=== PATIENT | female | born 1960 | race Caucasian/White ===

== ENCOUNTER 2017-09-14 18:45 | Emergency (ER) | payer OTHER ==
[2017-09-14 19:32] VITALS: BP 147/93
[2017-09-14] MEDS ORDERED: Lidocaine 1% MPF* 2 ML VIAL INJ ONE (20:24)
--- NOTE | 2017-09-14 20:26 | UC ---
Laceration HPI - HPI Summary HPI Summary: tripped and cut right foot on a rock at 1820. - History Of Current Complaint Hx Obtained From: Patient Laceration Location: Foot - right Mechanism Of Injury: Blunt Trauma Onset/Duration: Sudden Onset Pain Intensity: 4 Pain Scale Used: 0-10 Numeric Aggravating Factors: Nothing <Sarah Vaughan - Last Filed: 09/25/17 22:12> <Renetta Kay - Last Filed: 09/27/17 07:24> - History Of Current Complaint Chief Complaint: UCLaceration Stated Complaint: FOOT LAC Time Seen by Provider: 09/14/17 20:04 - Allergies/Home Medications Allergies/Adverse Reactions: Allergies Allergy/AdvReac Type Severity Reaction Status Date / Time erythromycin base Allergy N/V Verified 09/14/17 19:32 LIDEX Allergy Unknown Uncoded 09/14/17 19:32 Reaction Details PMH/Surg Hx/FS Hx/Imm Hx Previously Healthy: Yes - Surgical History Surgical History: None - Family History Known Family History: Positive: None Family History: NON CONTRIBUTORY - Social History Occupation: Employed Full-time Lives: With Family Alcohol Use: Occasionally Substance Use Type: None Smoking Status (MU): Never Smoked Tobacco <Sarah Vaughan - Last Filed: 09/25/17 22:12> Review of Systems Constitutional: Negative Skin: Other - laceration to right foot--less than 2.5 cm Eyes: Negative ENT: Negative Respiratory: Negative Cardiovascular: Negative Gastrointestinal: Negative Genitourinary: Negative Motor: Negative Neurovascular: Negative Musculoskeletal: Negative Neurological: Negative Psychological: Negative Is Patient Immunocompromised?: No All Other Systems Reviewed And Are Negative: Yes <Sarah Vaughan - Last Filed: 09/25/17 22:12> Physical Exam Triage Information Reviewed: Yes Appearance: Well-Appearing, No Pain Distress, Well-Nourished Vital Signs: Initial Vital Signs Temp 98 F 09/14/17 19:28 Pulse 91 09/14/17 19:28 Resp 16 09/14/17 19:28 BP 147/93 09/14/17 19:28 Pulse Ox 97 09/14/17 19:28 Vital Signs Reviewed: Yes Eye Exam: Normal Eyes: Positive: Conjunctiva Clear ENT Exam: Normal ENT: Positive: Normal ENT inspection, Hearing grossly normal. Negative: Trismus , Muffled voice, Hoarse voice Dental Exam: Normal Neck exam: Normal Neck: Positive: Supple, Nontender Respiratory Exam: Normal Respiratory: Positive: Chest non-tender, No respiratory distress, No accessory muscle use Cardiovascular Exam: Normal Cardiovascular: Positive: RRR, Pulses Normal, Brisk Capillary Refill Musculoskeletal Exam: Normal Musculoskeletal: Positive: Strength Intact, ROM Intact, No Edema Neurological Exam: Normal Neurological: Positive: Alert, Muscle Tone Normal Psychological Exam: Normal Skin Exam: Normal Skin: Positive: Other - less than 2.5 cm laceration right foot <Sarah Vaughan - Last Filed: 09/25/17 22:12> Vital Signs: Initial Vital Signs Temp 98 F 09/14/17 19:28 Pulse 91 09/14/17 19:28 Resp 16 09/14/17 19:28 BP 147/93 09/14/17 19:28 Pulse Ox 97 09/14/17 19:28 <Renetta Kay - Last Filed: 09/27/17 07:24> Laceration Course/Dx - Course/Dx Course Of Treatment: DSD, wash daily keflex follow with pcp rpn - Differential Dx - Laceration/Wound Provider Diagnoses: less than 2.5 cm laceration to right foot <Sarah Vaughan - Last Filed: 09/25/17 22:12> Discharge - Sign-Out/Discharge Documenting (check all that apply): Discharge/Admit/Transfer - Billing Disposition and Condition Condition: STABLE Disposition: Home <aSrah Vaughan - Last Filed: 09/25/17 22:12> - Billing Disposition and Condition Condition: STABLE Disposition: Home <Renetta Kay - Last Filed: 09/27/17 07:24> - Discharge Plan Condition: Stable Disposition: HOME Prescriptions: Cephalexin CAP* [Keflex CAP*] 500 mg PO QID #20 cap Patient Education Materials: Crutch Instructions (ED), Laceration (ED) Referrals: Garrett Berry MD [Primary Care Provider] - If Needed Attestation Statement User Type: Provider - I was available for consult. This patient was seen by the JOSEFINA. The patient was not presented to, seen by, or examined by me. -[place] <Renetta Kay - Last Filed: 09/27/17 07:24>
[2017-09-14] MEDS ORDERED: Cephalexin CAP* 500 MG PO ONE (21:02)
== END 2017-09-14 21:10 | disposition home or self-care (01) ==
LOC: UCEAST 18:45
DX: S91.311A Laceration without foreign body, right foot, initial encounter (principal); W26.8XXA Contact with other sharp object(s), not elsewhere classified, initial encounter; Y93.9 Activity, unspecified; Y92.9 Unspecified place or not applicable; Z88.1 Allergy status to other antibiotic agents
CPT/HCPCS: 12001; 99212; A9270-GY; G0463

== ENCOUNTER 2020-07-14 22:04 | Observation (INO) ==
[2020-07-14] MEDS ORDERED: NS 0.9% 1000 ml BAG 1,000 ML IV ONE (22:25)
[2020-07-14] MEDS ORDERED: Ondansetron 4 mg VIAL 2 MG/ML 2 ml VIAL IV ONE (22:26)
[2020-07-14 23:02] LABS: ABS Basophils 0.1 10^3/ul (0-0.2); ABS Lymphocytes 1.1 10^3/ul (1.0-4.8); ABS Monocytes 0.8 10^3/ul (0-0.8); ABS Neutrophils 11.7 10^3/ul (1.5-7.7); Eosinophil % 0.1 %; Hematocrit 37 % (35-47); Hemoglobin 12.9 g/dL (12.0-16.0); Mean Corpuscular HGB Conc 35 g/dL (31-36); Mean Corpuscular Hemoglobin 32 pg (27-31); Mean Corpuscular Volume 93 fL (80-97); Mean Platelet Volume 7.2 fL (7.4-10.4); Platelet Count 193 10^3/uL (150-450); Red Blood Count 4.03 10^6 /uL (3.70-4.87); Red Cell Distribution Width 13 % (10-15); White Blood Count 13.7 10^3/uL (3.5-10.8)
[2020-07-14 23:35] LABS: Anion Gap 8 mmol/L (2-11); BUN/Creatinine Ratio 13.9 (8-20); Blood Urea Nitrogen 16 mg/dL (6-24); CO2 Carbon Dioxide 25 mmol/L (22-32); Calcium 9.5 mg/dL (8.6-10.3); Chloride 102 mmol/L (101-111); EGFR African American 58.2 (>60); EGFR Non-African American 48.1 (>60); Globulin 2.6 g/dL (2-4); Glucose 121 mg/dL (70-100); Potassium 3.6 mmol/L (3.5-5.0); Sodium 135 mmol/L (135-145); Total Protein 6.6 g/dL (6.4-8.9)
[2020-07-14 23:36] LABS: ALT 27 U/L (7-52); AST 28 U/L (13-39); Albumin/Globulin Ratio 1.5 (1-3); Alkaline Phosphatase 67 U/L (34-104); Amylase 26 U/L (29-103); C Reactive Protein 169.71 mg/L (<8.01); Lipase < 10 U/L (11.0-82.0)
[2020-07-15] MEDS ORDERED: Iodixanol (CONTRAST) 320 MG/ML 100 ML SDV IV ONE (01:17)
[2020-07-15] MEDS ORDERED: Morphine 4 MG/ML VIAL (1 ml) IV ONE (01:25)
[2020-07-15] MEDS ORDERED: Piperacillin/Tazobac ADVAN 3.375 GM in NS 0.9% 100 ml BAG 100 ML IVPB ONE (04:13)
[2020-07-15] MEDS ORDERED: Ondansetron 4 mg VIAL 2 MG/ML 2 ml VIAL IV PRN (04:15)
[2020-07-15] MEDS ORDERED: NS 0.9% 1000 ml BAG 1,000 ML IV SCH (04:30)
[2020-07-15] MEDS: Morphine 2 MG/ML SYRINGE IV PRN ×2 (05:52→08:36)
[2020-07-15] MEDS ORDERED: Propofol 10 MG/ML 20 ML BTL ONE (08:55)
[2020-07-15] MEDS ORDERED: Lidocaine 2% PF 5 ML VIAL ONE (08:56)
[2020-07-15] MEDS ORDERED: Dexamethasone IV 4 MG/ML VIAL 1 ml VIAL ONE (08:56)
[2020-07-15] MEDS ORDERED: Ondansetron 4 mg VIAL 2 MG/ML 2 ml VIAL ONE (08:56)
[2020-07-15] MEDS ORDERED: Bupivacaine 0.25% EPI 200,000 30 ML SDV ONE (08:57)
[2020-07-15] MEDS ORDERED: Piperacillin/Tazobactam VIAL 3.375 GM in NS 0.9% 100 ml BAG 100 ML IVPB SCH (09:00)
[2020-07-15] MEDS ORDERED: fentaNYL 250 mcg/5 ml 50 MCG/ML 5 ml VIAL (250 MCG) ONE (09:01)
[2020-07-15] MEDS ORDERED: Midazolam 2 mg/2 ml VIAL 1 mg/ml 2 ml VIAL (2 mg) ONE (09:02)
[2020-07-15] MEDS ORDERED: Rocuronium 50 mg VIAL 10 mg/ml 5 ml VIAL (50 mg) ONE (09:03)
[2020-07-15] MEDS ORDERED: Ketamine HCL 50 mg/ml 10 ml VIAL (500 MG) ONE (09:46)
[2020-07-15] MEDS ORDERED: Bacitracin OINTMENT TUBE ONE (10:52)
[2020-07-15 13:22] VITALS: BP 122/78
== END 2020-07-15 13:23 | disposition home or self-care (01) ==
LOC: ED 22:04 → SSU 22:04
PROVIDERS: ADMIT Surgery; ATTEND Surgery